=== PATIENT | female | born 1985 | race Caucasian/White ===

== ENCOUNTER 2022-03-19 13:16 | Emergency (ER) | payer OTHER ==
[~2022-03-19] VITALS: Ht 167.6 cm; Wt 59.9 kg
[2022-03-19 14:00] VITALS: BP_SYST 100
--- NOTE | 2022-03-19 14:17 | NUR ---
pt triaged, vs stable, place pt back in waiting room adv that once we have room available we will call, provided urine cup for sample Addendum: 03/19/22 at 1648 by IRAM pt triaged, vs stable, place pt back in waiting room adv that once we have room available we will call, provided urine cup for sample
--- NOTE | 2022-03-19 16:46 | NUR ---
Placed in room 5 . Placed on security monitor, blood pressure machine and pulse oximeter. To gown for exam. Side rails up. Report given to JENNIFER MOJICA.
--- NOTE | 2022-03-19 16:47 | NUR ---
PLACE PT IN ROOM 5, BED LOWERED AND LOCKED RAILS UP.
--- NOTE | 2022-03-19 17:05 | NUR ---
Pt brought by self, A&Ox4, pt presents to ER with redness, swelling on L ankle, states it is a possible bugbite/black bite, pt afebrile, VSS, will cont to monitor.
--- NOTE | 2022-03-19 17:30 | NUR ---
Dr Sheikh evaluating patient at bedside
[2022-03-19] MEDS ORDERED: PRED20TA PO (18:25)
[2022-03-19] MEDS ORDERED: ACETAMINOPHEN 325 MG TABLET PO ONE (18:30)
[2022-03-19] MEDS ORDERED: predniSONE 20 MG TABLET PO ONE (18:30)
[2022-03-19] MEDS ORDERED: DIPHENHYDRAMINE HCL 50 MG CAPSULE PO ONE (18:30)
[2022-03-19 18:48] VITALS: BP_SYST 105
--- NOTE | 2022-03-19 18:48 | NUR ---
Patient given written and verbal discharge instructions and verbalizes understanding. ER MD discussed with patient the results and treatment provided. Patient in stable condition. ID arm band removed. Rx of Prednisone given. Patient educated on pain management and to follow up with PMD. Pain Scale 2/10 Opportunity for questions provided and answered. Medication side effect fact sheet provided.
== END 2022-03-19 18:48 | disposition home or self-care (01) ==
LOC: SED 13:16
DX: S80.862A Insect bite (nonvenomous), left lower leg, initial encounter (principal); W57.XXXA Bitten or stung by nonvenomous insect and other nonvenomous arthropods, initial encounter; Y93.89 Activity, other specified; Y92.89 Other specified places as the place of occurrence of the external cause; Y99.8 Other external cause status
CPT/HCPCS: 36415; 81025; 84702; 99284; J7512; Q0163